=== PATIENT | female | born 1990 | race African-American/Black ===

== ENCOUNTER 2024-12-30 14:31 | Emergency (ER) | payer BC ==
[~2024-12-30] VITALS: Ht 165.1 cm; Wt 70.3 kg
[2024-12-30] MEDS ORDERED: ONDA4TAB5 PO (16:11)
[2024-12-30] MEDS ORDERED: ACETAMINOPHEN ES 500 MG TABLET ONE (16:12)
[2024-12-30] MEDS ORDERED: LORAZEPAM 1 MG TABLET ONE (16:12)
[2024-12-30] MEDS ORDERED: ONDANSETRON 4 MG TAB.RAPDIS ONE (16:12)
[2024-12-30] MEDS: ACETAMINOPHEN ES 500 MG TABLET PO ONE (16:17)
[2024-12-30] MEDS: LORAZEPAM 1 MG TABLET PO ONE (16:17)
[2024-12-30] MEDS: ONDANSETRON 4 MG TAB.RAPDIS SL ONE (16:18)
[2024-12-30 16:42] VITALS: BP 120/72; TEMP 98.7; O2SAT 99
== END 2024-12-30 16:43 | disposition home or self-care (01) ==
LOC: ER 14:31
DX: R11.2 Nausea with vomiting, unspecified (principal); Z60.2 Problems related to living alone
CPT/HCPCS: 99284; Q0162